=== PATIENT | female | born 1990 | race Two or more races ===

== ENCOUNTER 2019-05-30 12:58 | Emergency (ER) | payer SELFPAY ==
[~2019-05-30] VITALS: Ht 167.6 cm; Wt 81.6 kg
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
[2019-05-30 13:13] VITALS: BP 129/81
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
[2019-05-30] MEDS ORDERED: IBUPROFEN400 MG ORAL (13:42)
[2019-05-30 13:49] VITALS: BP 114/68
--- NOTE | 2019-05-30 13:49 | NUR ---
ED Nurse Note: Patient is being discharged from medical care. Patient awake, alert, oriented x 4. D/C insturction given. Prescription given to . Patient ambulated out with steady gait with all her belongings, accomapined by .
== END 2019-05-30 13:50 ==
LOC: EMR 13:50
DX: S70.12XA Contusion of left thigh, initial encounter (principal); W50.1XXA Accidental kick by another person, initial encounter; Y92.9 Unspecified place or not applicable
CPT/HCPCS: 99282